=== PATIENT | female | born 1995 | race Two or more races ===

== ENCOUNTER 2020-11-18 16:12 | Emergency (ER) | payer OTHER ==
[~2020-11-18] VITALS: Ht 167.6 cm; Wt 73.0 kg
[2020-11-18 16:35] VITALS: BP 138/84
== END 2020-11-18 20:45 | disposition left against medical advice (07) ==
LOC: ER 16:12
DX: Z53.21 Procedure and treatment not carried out due to patient leaving prior to being seen by health care provider (principal); I10 Essential (primary) hypertension